=== PATIENT | female | born 1980 | race Caucasian/White ===

== ENCOUNTER 2016-11-30 22:05 | Emergency (ER) | payer OTHER ==
[2016-11-30] MEDS ORDERED: HYDROCODONE/ACETAMINOPHEN 5/325MG TABLET ONE (22:46)
== END 2016-11-30 22:56 | disposition home or self-care (01) ==
LOC: ED 22:05
DX: M75.21 Bicipital tendinitis, right shoulder (principal)
CPT/HCPCS: 99283 ×2; A9270